=== PATIENT | female | born 1960 | race Caucasian/White ===

== ENCOUNTER 2017-08-08 19:32 | Emergency (ER) | payer OTHER ==
[2015-08-25 13:56] VITALS: BMI 29.1
[~2017-08-08 19:32] MED LIST: DEMEROL50 MG PO; PHENERGAN25 M1 PO
== END 2017-08-08 21:05 | disposition home or self-care (01) ==
LOC: D.ER 19:32
DX: R06.00 Dyspnea, unspecified (principal)

== ENCOUNTER → 2017-08-15 09:57 | Outpatient (CLI) | payer OTHER ==
[2015-08-25 13:56] VITALS: BMI 29.1
== END | disposition home or self-care (01) ==
LOC: D.US 08-09 11:00
DX: R10.2 Pelvic and perineal pain (principal)